=== PATIENT | female | born 1955 | race Caucasian/White ===

== ENCOUNTER → 2023-01-03 10:01 | Outpatient (REF) | payer MEDICARE, SELFPAY ==
--- NOTE | 2023-01-03 10:12 | CA_ITS ---
Transthoracic Echocardiogram Patient (Last, First, Middle): Marcelino Casper, Gender: Female Date of : 1955 Age: 67 Procedure Date: 01/03/2023 Procedure Type: Transthoracic Echocardiogram Location: OP Height: 154.94 cm Weight: 68.95 kg BSA: 1.68 m2 Heart Rate: bpm BP: 130 / 76 mmHg [place]: TO Referring MD: Roshan Chen DO Symptoms: GUSMAN Study Quality: Fair/Contrast Conclusions: - 1. [id number] LV systolic dysfunction with regional wall motion abnormality predominantly in LAD territory consistent with ischemic cardiomyopathy with impaired relaxation filling pattern 2. Probable mild aortic stenosis, low gradient type 3. [id number] mitral regurgitation 4. Normal RV systolic pressure 5. Upper limits of normal ascending aortic size 6. No gross pericardial effusion Findings Procedure Information Contrast agent, definity, is being given per protocol without apparent complications. Left Ventricle Normal left ventricular cavity size. There is normal left ventricular wall thickness. The left ventricular systolic function is mild to moderately decreased. The visually estimated ejection fraction is between 40-45%. Spectral Doppler is indicative of an impaired relaxation filling pattern. E/E prime ratio is between 8 and 15 consistent with indeterminate filling pressures. Wall Motion Rest Echo Findings The apical anterior, apical inferior, mid inferior, and basal anterolateral segments are hypokinetic. The inferoseptal wall, the apex, basal inferior, apical lateral, apical septum, and basal anteroseptal segments are akinetic. The mid anteroseptal segment is dyskinetic. All other scored wall segments showed normal motion. Right Ventricle Normal right ventricular cavity size. There is moderately decreased right ventricular systolic function. Atria The left atrium is mildly dilated. There is no evidence of interatrial shunt. The right atrium is normal in size. Aortic Valve There is mild calcification of the aortic valve. There is moderate thickening of the aortic valve. There is mild aortic valve stenosis. There is no aortic valve regurgitation. Mitral Valve There is mild anterior and moderate posterior mitral leaflet thickening. There is mild mitral annular calcification. There is mild to moderate mitral valve regurgitation. There is no mitral valve stenosis. Pulmonic Valve The pulmonic valve is likely normal. There is trace pulmonic valve regurgitation. Tricuspid Valve Normal tricuspid valve structure. There is mild tricuspid valve regurgitation. The right ventricular systolic pressure is normal. The right ventricular systolic pressure is 25 mmHg. Normal right atrial pressure. There is no evidence of pulmonary hypertension. Great Vessels The pulmonary artery was not well visualized. Small plaque is seen in the sino tubular ridge and ascending aorta. Venous The inferior vena cava is normal in size and collapses greater than 50% with inspiration. Pericardium/Pleural There is no evidence of pericardial effusion. Prior Study Comparison Changes noted compared to prior study dated: 09/25/2022. LV systolic function is 40-45% on this study with regional wall motion abnormalities consistent with underlying coronary artery disease Measurements 2D Linear Measurements IVSd: 1.30 0.6-0.9/0.6-1.0 cm LVIDd: 4.35 3.9-5.3/4.2-5.9 cm LVIDd Index: 2.59 2.4-3.2/2.2-3.1 cm/m2 LVIDs: 3.73 2.0-3.6 cm LVPWd: 0.97 0.7-1.1 cm LA Diam: 3.60 2.7-3.8/3.0-4.0 cm LAIDs Index: 2.14 1.5-2.3 cm/m2 LV Mass: 215.98 67-162/88-224 g LV Mass Index: 128.56 43-95/49-115 g/m2 LVOT Diam: 1.90 3.0+(-)1.3 cm 2D Systolic Function EF 4C: 38.60 >55% EF 2C: 36.70 >55% EF BiP: 41.40 >55% Mitral Valve MV Pk E: 0.63 MV PK A: 0.83 MV Decel Time: 92.00 E/A: 0.80 E'Lateral: 4.57 E'Medial: 5.22 E/E' Med: 12.10 E/E' Lat: 13.80 PHT: 27.00 MVA PHT: 8.15 Decel [place]: 6.83 MR Vol - PW Dopp: 39.69 MR VTI: 1.89 MR ERO: 21.00 MR Alias Joshua: 0.35 MR RAD: 0.70 Aortic Valve AoV Pk Joshua: 1.94 AoV Mn Joshua: 1.30 AoV VTI: 0.36 AoV Pk Grad: 15.00 Aov Mn Grad: 8.00 TULIO Cont.VTI: 1.27 LVOT LVOT Pk Joshua: 0.86 LVOT Mn Joshua: 0.53 LVOT VTI: 0.16 LVOT Pk Grad: 3.00 LVOT Mn Grad: 1.00 LVOT Diam: 1.90 LVOT Area: 2.84 Diastolic Function MV Pk E: 0.63 MV Pk A: 0.83 E/A: 0.80 E'Medial: 5.22 E/E' Med: 12.10 E' Laterial: 4.57 E/E' Lat: 13.80 Right Ventricle TAPSE (mm): 14.20 TVS' Joshua: 9.03 Tricuspid Valve TR Pk Joshua: 2.34 TR Pk Grad: 22.00 RA Press: 3.00 RVSP: 25.00 Great Vessels Aorta Sinus of Valsalva: 3.16 2.0-3.5 cm Ao Asc: 3.60 2.1-3.4 cm Updated in Other Vendor System with Status of Final Bennett Can MD electronically signed on 01/04/2023 10:35:11 AM with status of Final
== END ==
LOC: HO.CARD 10:01
PROVIDERS: PCP Internal Medicine; Visit Provider Internal Medicine Cardiovascular Disease
DX: R06.00 Dyspnea, unspecified (principal)
CPT/HCPCS: 93306; Q9957